=== PATIENT | female | born 1985 | race Caucasian/White ===

== ENCOUNTER 2020-09-24 10:47 | Emergency (ER) | payer BC, SELFPAY ==
[2020-09-24 10:56] VITALS: BP 122/82; PULSE 96; RESP 14; TEMP 36.3; O2SAT 98
--- NOTE | 2020-09-24 10:59 | ED.GENADULT ---
HPI - General Adult General Chief complaint: Ear Stated complaint: lt ear prob Time Seen by Provider: 09/24/20 11:00 Source: patient Mode of arrival: ambulatory Limitations: no limitations History of Present Illness HPI narrative: 35-year-old female patient presents to the [facility] with complaints of left ear pain for the past week. Patient denies any fevers, body aches or chills. Denies any sore throat. Patient states she has had a little bit of a runny nose that just started a couple of days ago. Denies any chest pain, shortness of breath or coughing. Patient states she has been taking ibuprofen for her pain. Related Data Home Medications Medication Instructions Recorded Confirmed bupropion HCl 150 mg PO DAILY 09/24/20 09/24/20 escitalopram oxalate 20 mg PO DAILY 09/24/20 09/24/20 norethindrone-e.estradiol-iron 1 tablet PO DAILY 09/24/20 09/24/20 [Aurovela Fe 1-20 (28)] Allergies Allergy/AdvReac Type Severity Reaction Status Date / Time Penicillins Allergy Unknown Verified 09/24/20 11:06 Review of Systems Review of Systems: Narrative: CONSTITUTIONAL: Denies fever, chills, or sweats. EYES: Denies visual changes, redness, or discharge. ENT: Denies rhinorrhea, congestion, sore throat, positive left otalgia. CARDIOVASCULAR: Denies chest pain, palpitations, or edema. RESPIRATORY: Denies cough or dyspnea. GASTROINTESTINAL: Denies abdominal pain, nausea, vomiting, or diarrhea. GENITOURINARY: Denies dysuria or hematuria. SKIN: Denies rash or itching. MUSCULOSKELETAL: Denies back pain, joint pain, or myalgia. NEUROLOGIC: Denies headache, numbness, or weakness. PSYCHIATRIC: Denies anxiety or depression. [facility] Past Medical History Medical History (Updated 09/24/20 @ 11:12 by BUCK Medina) Anxiety Depression GERD (gastroesophageal reflux disease) Surgical History Surgical History (Updated 09/24/20 @ 11:08 by BUCK Medina) H/O removal of cyst Comments At the time of my signature I agree with nursing past medical history, surgical, social, and family history. There is no relevant family history pertinent to the presenting complaint. Exam Narrative: Exam Narrative: GENERAL: Well-appearing, well-nourished, and in no acute distress. HEAD: Normocephalic, atraumatic. EYES: PERRLA and EOMI. ENT: Nares clear, no rhinorrhea or epistaxis. Mucous membranes moist. Posterior pharynx with no erythema, tonsillar Bernarda, exudates or lesions present. Bilateral TMs do have some erythema presents. No foreign bodies in the canal. No discharge noted. NECK: Supple. No lymphadenopathy CHEST: Clear to auscultation. No respiratory distress. HEART: Regular rate and rhythm. No murmur heard. Normal peripheral pulses. ABDOMEN: Soft, nontender, nondistended, normal active bowel sounds. EXTREMITIES: Normal range of motion. No edema. SKIN: Warm, dry, no rash. NEURO: No focal deficits. Alert and oriented x3. Course Vital Signs Vital signs: Vital signs reviewed Medical Decision Making Differential Diagnosis Differential Diagnosis: Differential diagnosis: Otitis media, otitis externa, perforated TM, infection of the outer ear, foreign body or cerumen impaction, ruptured TM, acute mastoiditis, ligament otitis externa, dehydration, pneumonia, sepsis, dental or intraoral infection, TMJ dysfunction Plan of care for patient is to discharge her home with antibiotics for bilateral ear infection. We will also send her home with a months worth of antihistamines to help prevent infections once this runs out she can buy this [id number]. Discussed with patient she can continue taking Tylenol and ibuprofen as needed for pain. Patient verbalized understanding denies any other questions or concerns at this time. Critical Care Time Critical Care Time Critical Care Time: No Discharge Plan Discharge Clinical Impression: Bilateral acute otitis media Patient Disposition: Home, Self-Care Condition: Stable In
== END 2020-09-24 11:18 | disposition home or self-care (01) ==
PROVIDERS: Emergency Provider Nurse Practitioner Family; PCP Internal Medicine
DX: H66.93 Otitis media, unspecified, bilateral (principal); F41.9 Anxiety disorder, unspecified; F32.9 Major depressive disorder, single episode, unspecified
CPT/HCPCS: 99213; G0463

== ENCOUNTER 2021-01-02 09:51 | Emergency (ER) | payer BC, SELFPAY ==
[2021-01-02 09:55] VITALS: BP 123/79; PULSE 77; RESP 16; TEMP 36.5; O2SAT 100
--- NOTE | 2021-01-02 10:06 | ED.EAR ---
HPI - Ear Problem General Chief complaint: Ear Stated complaint: Ear pain Time Seen by Provider: 01/02/21 10:06 Source: patient and RN notes reviewed Mode of arrival: ambulatory Limitations: no limitations History of Present Illness HPI Narrative: 35-year-old female presents with concern for pain near her left ear. She reports 8/10 pain for approximately 1 week. Reports she has been taking ibuprofen with occasional relief. She denies any upper respiratory symptoms such as rhinorrhea, nasal congestion, sore throat, cough, headache. She denies drainage from the ear. Reports pain is worse when she chews. Reports she has popping and clicking in her jaws on a regular basis. MD Complaint: ear pain Related Data Home Medications Medication Instructions Recorded Confirmed bupropion HCl 150 mg PO DAILY 09/24/20 01/02/21 escitalopram oxalate 20 mg PO DAILY 09/24/20 01/02/21 norethindrone-e.estradiol-iron 1 tablet PO DAILY 09/24/20 01/02/21 [Aurovela Fe 1-20 (28)] Allergies Allergy/AdvReac Type Severity Reaction Status Date / Time Penicillins Allergy Unknown Verified 09/24/20 11:06 Review of Systems Review of Systems: Narrative: CONSTITUTIONAL: Denies malaise, chills, sweats, or fever. EYES: Denies visual changes, redness, or discharge. ENT: Denies rhinorrhea, congestion, sinus pain, and sore throat. Reports pain near the right ear, denies drainage. Reports jaw popping and clicking CARDIOVASCULAR: Denies chest pain, palpitations, or edema. RESPIRATORY: Denies cough or dyspnea. GASTROINTESTINAL: Denies abdominal pain, nausea, vomiting, diarrhea SKIN: Denies rash or itching. MUSCULOSKELETAL: Denies myalgia. NEUROLOGIC: Denies headache. All systems reviewed & are unremarkable except as noted in HPI and below PMFSH Past Medical History Medical History (Updated 01/02/21 @ 10:20 by Marj Fan NP) Anxiety Depression GERD (gastroesophageal reflux disease) Surgical History Surgical History (Updated 09/24/20 @ 11:08 by BUCK Medina) H/O removal of cyst Comments At time of signature, agree with nursing past medical, surgical, social and family history. There is no relevant family history pertinent to the presenting complaint Exam Narrative: Exam Narrative: GENERAL: Well-appearing, well-nourished, and in no acute distress. HEAD: Normocephalic, atraumatic. EYES: PERRLA, conjunctivae clear, and EOMI. No nystagmus. ENT: Nares clear, turbinates pink, no rhinorrhea or epistaxis. Mucous membranes moist. TM pearly murillo with sharp light reflex bilaterally; no tragal tenderness. Oropharynx without erythema or lesions. Tonsils not enlarged and without exudate. Left mandible tenderness with popping noted with opening closing of the jaw NECK: Supple. No lymphadenopathy. No jugular venous distension, thyromegaly, or carotid bruits. Carotids were easily palpable bilaterally. CHEST: No respiratory distress. Speaks in full sentences. HEART: Regular rate and rhythm. SKIN: Warm, dry, no rash. NEURO: Alert and oriented x3 PSYCH: Normal mood and affect Course Course Emergency Course: Patient is aware of diagnosis, understands and agrees to treatment plan. Anticipatory guidance given. Patient agrees to follow-up as directed and is aware of reasons to seek care at the emergency department. Portions of this record may have been created with voice recognition software Vital Signs Vital signs: Vital Signs Temperature 97.7 F 01/02/21 09:55 Pulse Rate 77 01/02/21 09:55 Respiratory Rate 16 01/02/21 09:55 Blood Pressure 123/79 01/02/21 09:55 Pulse Oximetry 100 01/02/21 09:55 Temperature 97.7 F 01/02/21 09:55 Pulse Rate 77 01/02/21 09:55 Respiratory Rate 16 01/02/21 09:55 Blood Pressure 123/79 01/02/21 09:55 Pulse Oximetry 100 01/02/21 09:55 Reviewed. Medical Decision Making MDM Narrative Medical decision making narrative: Differential diagnosis considered: TMJ, Peoples virus, strep pha
== END 2021-01-02 10:25 | disposition home or self-care (01) ==
PROVIDERS: Emergency Provider Nurse Practitioner; PCP Internal Medicine
DX: R68.84 Jaw pain (principal); K21.9 Gastro-esophageal reflux disease without esophagitis; F41.9 Anxiety disorder, unspecified; F32.9 Major depressive disorder, single episode, unspecified
CPT/HCPCS: 99213; G0463

== ENCOUNTER 2021-01-12 16:26 | Emergency (ER) | payer BC, SELFPAY ==
[2021-01-12 16:33] VITALS: BP 135/92; PULSE 75; RESP 16; TEMP 36.4; O2SAT 100
--- NOTE | 2021-01-12 17:12 | ED.DENTAL ---
HPI - Dental/Oral General Chief complaint: Dental/Oral Stated complaint: Toothache and swollen left side of Face Time Seen by Provider: 01/12/21 17:12 Source: patient Mode of arrival: ambulatory Limitations: no limitations History of Present Illness HPI Narrative: Ayesha Monreal is a 35 yo female with with no PMH who comes [facility] with left lower molar pain and left ear pain that has started about a week ago has continued to get worse that she now rates as 9 out of 10. She has pain in her left lower jaw. She has an appointment with a dentist in [place] on Friday Related Data Home Medications Medication Instructions Recorded Confirmed escitalopram oxalate 20 mg PO DAILY 09/24/20 01/12/21 Allergies Allergy/AdvReac Type Severity Reaction Status Date / Time Penicillins Allergy Unknown Verified 01/12/21 16:50 Review of Systems Review of Systems: Narrative: CONSTITUTIONAL: Denies fever, chills, sweats. EYES: Denies visual changes, redness, discharge. ENT: Denies rhinorrhea, congestion, sore throat, otalgia. Left lower molar dental pain with jaw pain and left ear pain CARDIOVASCULAR: Denies chest pain, palpitations, edema. RESPIRATORY: Denies dyspnea, wheezing, cough GASTROINTESTINAL: Denies abdominal pain, nausea, vomiting, diarrhea. GENITOURINARY: Denies dysuria, hematuria, abnormal discharge SKIN: Denies rash or itching. NEUROLOGIC: Denies numbness, or focal weakness. PSYCHIATRIC: Denies anxiety or depression. PMFSH Past Medical History Medical History Anxiety Depression GERD (gastroesophageal reflux disease) Surgical History Surgical History H/O removal of cyst Social History Social History (Updated 01/12/21 @ 17:19 by Swetha Balbuena CNP) Smoking status: Former smoker Alcohol intake: current Alcohol use details: Rarely drinks alcohol Comments At time of signature, I agree with nursing past medical, surgical, social and family history. There is no relevant family history pertinent to the presenting complaint. Blood pressure is elevated probably due to pain but should follow-up with her primary care physician next week Exam Narrative: Exam Narrative: GENERAL: This is a well-nourished, well-developed patient, in mild distress. HEAD: normocephalic, atraumatic. EYES: Sclera clear/white. Vision is grossly intact. EARS: External ears normal, auditory canals clear on R - fluid behind TM on L, pain along lower L jaw. Hearing grossly intact. NOSE: External nose normal without nasal discharge, nares without redness, no rhinorrhea. THROAT: Mucous membranes moist, posterior pharynx pink; left lower rear molar pain (tooth #17) NECK: Neck supple, tender on left CARDIOVASCULAR: Regular rate and rhythm without murmurs, gallops, or rubs. RESPIRATORY: Clear to auscultation. Breath sounds equal bilaterally. No wheezes, rales, or rhonchi. GASTROINTESTINAL: Abdomen soft, SKIN: warm, intact with no suspicious lesions or rash, good texture and turgor. NEURO: awake, alert, and oriented to person, place and time. There were no obvious focal neurologic abnormalities. Steady gait EXTREMITIES: Normal range of motion. BACK: Nontender without deformity Course Course Emergency Course: Patient comes for left lower molar pain that has continued to get worse over the last 10 days and now is 9 of 10 she has tried Advil Tylenol straight alcohol with no success and states that her ear jaw and mouth hurt Swollen, high-dose ibuprofen, [place], lidocaine-she has a dentist appointment on Friday Vital Signs Vital signs: Vital Signs Temperature 97.5 F L 01/12/21 16:33 Pulse Rate 75 01/12/21 16:33 Respiratory Rate 16 01/12/21 16:33 Blood Pressure 135/92 H 01/12/21 16:33 Pulse Oximetry 100 01/12/21 16:33 Temperature 97.5 F L 01/12/21 16:33 Pulse Rate 75 01/12/21 16:33 Respiratory Ra
== END 2021-01-12 17:39 | disposition home or self-care (01) ==
PROVIDERS: Emergency Provider Nurse Practitioner; PCP Internal Medicine
DX: K04.7 Periapical abscess without sinus (principal); Z87.891 Personal history of nicotine dependence; F41.9 Anxiety disorder, unspecified; F32.9 Major depressive disorder, single episode, unspecified; K21.9 Gastro-esophageal reflux disease without esophagitis
CPT/HCPCS: 99213; G0463

== ENCOUNTER 2022-12-15 09:30 | Emergency (ER) | payer OTHER, MEDICAID, SELFPAY ==
--- NOTE | ~2022-12-15 | XR_ITS ---
XR knee RT 3V DATE: 12/15/2022 10:10 INDICATION: Fall one month ago. Anterior knee pain. TECHNIQUE: AP, lateral, sunrise views COMPARISON: None FINDINGS: No fracture or dislocation or joint effusion. Joint spaces are preserved. No radiopaque int ra-articular loose body or chondrocalcinosis. No periosteal reaction or bone destruction. IMPRESSION: Negative Reviewed, dictated and finalized at location A. IMPRESSION: Negative
[2022-12-15 09:50] VITALS: BP 126/82; PULSE 87; RESP 16; TEMP 36.6; O2SAT 100
--- NOTE | 2022-12-15 09:56 | ED.LOWEXIN ---
HPI - Extremity Injury (Lower) General Chief Complaint: Extremity Injury, Lower Stated Complaint: right knee pain Time Seen by Provider: 12/15/22 09:57 Source: patient Mode of arrival: ambulatory Limitations: no limitations History of Present Illness HPI Narrative: 37 y/o female presented for c/o right lower knee pain since injury in October. States she had slipped on a wet floor and landed on the right lower knee area. Since then she has had pain to the right leg below the knee to the bray. Worse with kneeling and applying pressure, or certain movements of the leg. Came today because she felt a sharp pain at the site when kneeling. Denies increase in pain with walking, denies swelling, bruising, numbness or weakness. 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 Taking ibuprofen and tylenol. Related Data Home Medications Medication Instructions Recorded Confirmed No Home Medications 12/15/22 12/15/22 Allergies Allergy/AdvReac Type Severity Reaction Status Date / Time Penicillins Allergy Unknown Verified 12/15/22 09:48 Review of Systems Review of Systems: CONSTITUTIONAL: Denies body aches, fever, chills EYES: Denies visual changes ENT: Denies rhinorrhea, congestion CARDIOVASCULAR: Denies chest pain, palpitations, or edema. RESPIRATORY: Denies cough or dyspnea. GASTROINTESTINAL: Denies abdominal pain, nausea, vomiting, or diarrhea. SKIN: Denies rash, itching, or wounds. MUSCULOSKELETAL: reports right knee pain NEUROLOGIC: Denies headache, numbness, tingling, or weakness. PSYCH: Denies depression or anxiety. All systems reviewed & are unremarkable except as noted in HPI and below PMFSH Past Medical History Medical History Anxiety Depression GERD (gastroesophageal reflux disease) Surgical History Surgical History H/O removal of cyst Social History Social History Smoking status: Former smoker Alcohol intake: current Alcohol use details: Rarely drinks alcohol Comments At time of signature, I have reviewed and agree with nursing past medical, surgical, social and family history unless otherwise noted. Please see nursing chart for further information. There is no relevant family history pertinent to the presenting complaint Exam Narrative: GENERAL: Well-appearing, well-nourished, and in no acute distress. HEAD: Normocephalic, atraumatic. CHEST: Speaks in full sentences. No respiratory distress. HEART: Regular rate and rhythm. Normal and equal peripheral pulses. EXTREMITIES: RLE has normal strength and sensation, normal range of motion at the knee without pain. No edema or ecchymosis, No point tenderness. No open wounds, or obvious deformity; alignment normal, pulse palpable and equal bilaterally, skin warm, dry, pink. Capillary refill less than 3 seconds. SKIN: Warm, dry, no rash. NEURO: Alert and oriented x3. PSYCH: Normal mood and affect Course Course Emergency Course: Patient is aware of diagnosis, understands and agrees to treatment plan. Anticipatory guidance given. Patient agrees to follow-up as directed and is aware of reasons to seek care at the emergency department. Portions of this record may have been created with voice recognition software Level of Care: Express Care Visit Vital Signs Vital signs: Vital Signs Temperature 97.9 F 12/15/22 09:50 Pulse Rate 87 12/15/22 09:50 Respiratory Rate 16 12/15/22 09:50 Blood Pressure 126/82 12/15/22 09:50 Pulse Oximetry 100 12/15/22 09:50 Temperature 97.9 F 12/15/22 09:50 Pulse Rate 87 12/15/22 09:50 Respiratory Rate 16 12/15/22 09:50 Blood Pressure 126/82 12/15/22 09:50 Pulse Oximetry 100 12/15/22 09:50 Reviewed Procedures Orthopedic Splinting/Casting right knee: Splinting/C
== END 2022-12-15 10:49 | disposition home or self-care (01) ==
PROVIDERS: Emergency Provider Nurse Practitioner Family; PCP Internal Medicine
DX: M25.561 Pain in right knee (principal); F41.9 Anxiety disorder, unspecified; F32.A Depression, unspecified; Z87.891 Personal history of nicotine dependence
CPT/HCPCS: 73562; 99213; G0463

== ENCOUNTER 2023-09-08 18:30 | Emergency (ER) | payer OTHER, MEDICAID, SELFPAY ==
[2023-09-08 18:34] VITALS: BP 128/84; PULSE 83; RESP 20; TEMP 36.6; O2SAT 99
--- NOTE | 2023-09-08 18:46 | ED.HA ---
HPI - Headache General Chief Complaint: Headache Stated Complaint: Headache Source: patient, RN notes reviewed and old records reviewed Mode of arrival: ambulatory Limitations: no limitations History of Present Illness HPI Narrative: 37-year-old female [facility] with complaint of headache that started 3 days ago. Patient states he has been taking [id number] medications or sleeping but headache is not improving patient states does have nausea on and off at times. Patient states has had headache like this 1 time before but has never been diagnosed with migraines. Patient denies cough, congestion, fever. Related Data Allergies Allergy/AdvReac Type Severity Reaction Status Date / Time Penicillins Allergy Unknown Verified 12/17/22 11:59 Review of Systems Constitutional: Constitutional: Reports no additional constitutional complaints, Denies body ache(s), Denies chills, Denies fatigue, Denies fever(s) and Reports headache(s) Eyes: Eyes: Reports no additional eye complaints and Denies blurry vision ENT: Reports system reviewed and no additional complaints, except as documented, Denies vertigo, Denies dizziness, Denies ear discharge, Denies otalgia, Denies facial pain, Reports headache(s), Denies nasal congestion, Denies nasal discharge, Denies sinus pain, Denies sinus pressure and Denies sore throat Cardiovascular: Cardiovascular: Reports no additional cardiovascular complaints, Denies chest pain, Denies chest pain at rest, Denies rapid heart rate and Denies dyspnea Respiratory: Respiratory: Reports no additional respiratory complaints, Denies chest congestion, Denies cough, Denies pain on inspiration, Denies pain with cough and Denies dyspnea Gastrointestinal: Gastrointestinal: Denies abdominal pain, Denies diarrhea, Reports nausea and Denies vomiting Integumentary/Breasts: Skin/Breast: Denies rash Neurologic: Reports system reviewed and no additional complaints, except as documented, Denies vertigo, Denies dizziness and Reports headache(s) Endocrine: Endocrine: Denies fatigue PMFSH Past Medical History Medical History Anxiety Depression GERD (gastroesophageal reflux disease) Surgical History Surgical History H/O removal of cyst Social History Social History Smoking status: Former smoker Alcohol intake: current Alcohol use details: Rarely drinks alcohol Comments At the time of my signature, I reviewed and agree with the nursing past medical, surgical, social, and family history. There is no relevant family history pertinent to the patient complaint. Exam Const: General: cooperative, healthy appearing, no acute distress and well nourished Nutritional Appearance: well nourished Orientation/consciousness: patient oriented x3 Limitations: no limitations HENMT: Head: normal to inspection and normocephalic Ears: external ears normal, TM's normal bilaterally, EAC's normal and mastoids normal Face/Nose/Sinus: normal facial exam Face and sinus: normal facial exam Mouth: Yes Normal oral and palatal mucosa present, Yes oropharynx normal and Yes moist mucous membranes Throat: tonsils normal, uvula midline and no uvular edema Eyes: General: appearance normal, both eyes and all related structures Sclera: sclerae normal Pupils: Equal, round and reactive pupils present Resp: Effort & Inspection: normal respiratory effort, able to speak in complete sentences, no audible wheezes, no cough, no respiratory distress and no retractions Skin: General skin exam: normal color and no rashes or lesions noted Neuro: General: patient oriented x3 Cranial nerves: Yes CN's II-XII intact bilaterally and Yes Equal, round and reactive pupils present Cognition (Neuro): normal cognition Speech: normal speech Gait exam (Neuro): Normal gait present Psych:
== END 2023-09-08 19:02 | disposition home or self-care (01) ==
PROVIDERS: Emergency Provider Registered Nurse; PCP Internal Medicine
DX: G44.89 Other headache syndrome (principal); Z87.891 Personal history of nicotine dependence; K21.9 Gastro-esophageal reflux disease without esophagitis
CPT/HCPCS: 99213; G0463